=== PATIENT | female | born 1990 | race American Indian/Alaskan Native ===

== ENCOUNTER 2019-03-01 06:16 | Day surgery (SDC) | payer MEDICAID ==
[2019-02-27 11:37] LABS: Basophils # (Auto) 0.1 K/mm3 (0.0-0.1); Basophils % (Auto) 0.8 % (0.0-1.8); Eosinophils # (Auto) 0.1 K/mm3 (0.0-0.4); Eosinophils % (Auto) 1.3 % (0.0-4.3); Hematocrit 34.7 % (30.3-42.9); Hemoglobin 11.5 gm/dl (10.1-14.3); Lymphocytes # (Auto) 2.5 K/mm3 (1.2-5.4); Lymphocytes % (Auto) 36.7 % (13.4-35.0); Mean Corpuscular HGB Conc 33 % (30-34); Mean Corpuscular Volume 82 fl (79-97); Monocytes # (Auto) 0.5 K/mm3 (0.0-0.8); Platelet Count 303 K/mm3 (140-440); Red Blood Count 4.23 M/mm3 (3.65-5.03); Red Cell Distribution Width 14.6 % (13.2-15.2)
[2019-03-01] MEDS ORDERED: fentaNYL 100 MCG/2 ML INJ IV PRN (07:03)
[2019-03-01] MEDS ORDERED: ONDANSETRON 4 MG/2 ML INJ IV PRN (07:03)
--- NOTE | 2019-03-01 07:04 | Anesthesia Day of Surgery ---
Anesthesia Day of Surgery - Day of Surgery Patient Examined: Yes Patient H&P Reviewed: Yes Patient is NPO: Yes
[2019-03-01] MEDS ORDERED: KETOROLAC 30 MG/1 ML INJ ONE (07:06)
[2019-03-01] MEDS ORDERED: LIDOCAINE MPF (2%) 20 MG/1 ML VIAL 5 ML ONE (07:06)
[2019-03-01] MEDS ORDERED: PROPOFOL 200 MG/20 ML VIAL IV ONE (07:06)
[2019-03-01] MEDS ORDERED: dexAMETHasone 20 MG/5 ML VIAL ONE (07:06)
[2019-03-01] MEDS ORDERED: ROCURONIUM 50 MG/5 ML INJ IV ONE (07:06)
[2019-03-01] MEDS ORDERED: fentaNYL 250 MCG/5 ML INJ ONE (07:06)
--- NOTE | 2019-03-01 07:08 | Anesthesia Consultation ---
Anesthesia Consult and Med Hx Date of service: 03/01/19 - Airway Anesthetic Teeth Evaluation: Good ROM Head & Neck: Adequate Mental/Hyoid Distance: Adequate Mallampati Class: Class III Intubation Access Assessment: Possibly Difficult - Pre-Operative Health Status ASA Pre-Surgery Classification: ASA2 Proposed Anesthetic Plan: General - Central Nervous System Hx Psychiatric Problems: No - Hematic Hx Anemia: Yes Hx Sickle Cell Disease: Yes (Trait only) - Other Systems Hx Alcohol Use: Yes (Occas) Hx Cancer: No
[2019-03-01] MEDS ORDERED: SUGAMMADEX SODIUM 200 MG/2 ML VIAL IV ONE (07:11)
[2019-03-01] MEDS ORDERED: BUPIVACAINE/PF (0.5%) 5 MG/1 ML 30 ML VIAL INFILTRATI ONE ×2 (07:14→07:53)
--- NOTE | 2019-03-01 07:21 | Short Stay Summary ---
Short Stay Documentation Date of service: 03/01/19 Narrative H&P: 28y/o with undesired fertility. The patient is aware of other contraceptive options and has elected to undergo permanent sterilization. - History Principal diagnosis: unwanted fertility Past Medical History: hypertension Past Surgical History: Social history: - Allergies and Medications Current Medications: Allergies No Known Allergies Allergy (Unverified 02/23/19 15:27) Home Medications Medication Instructions Recorded Confirmed Last Taken Type No Known Home Medications [No 02/23/19 02/23/19 Unknown History Reported Home Medications] Active Medications Fentanyl (Sublimaze) 50 mcg IV Q5MIN PRN PRN Reason: Pain , Severe (7-10) Stop: 03/01/19 22:00 Lactated Ringer's (Lactated Ringers) 1,000 mls @ 125 mls/hr IV DIRECT LIZETH Midazolam HCl (Versed) 2 mg IV PREOP NR Stop: 03/01/19 23:59 Ondansetron HCl (Zofran) 4 mg IV ONCE PRN PRN Reason: Nausea And Vomiting Stop: 03/01/19 16:00 - Physical exam General appearance: no acute distress Integumentary: no rash HEENT: Atraumatic Lungs: Clear to auscultation Breasts: deferred Heart: Regular rate Gastrointestinal: normal Female Genitourinary: deferred Rectal Exam: deferred Extremities: no ischemia - Brief post op/procedure progress note Date of procedure: 03/01/19 Pre-op diagnosis: Undesired fertility Post-op diagnosis: same Procedure: laparoscopy bilateral salpingectomy Anesthesia: TAY Surgeon: BERNIE BYERS Estimated blood loss: minimal Pathology: list (bilateral fallopian tubes) Specimen disposition: to lab Condition: stable - Hospital course Hospital course: Patient was admitted at the date of surgery and underwent a bilateral salpingectomy. See operative note for details of surgery. Her postoperative course was uneventful. - Disposition Condition at discharge: Good Disposition: [id number] TO HOME OR SELFCARE Short Stay Discharge Plan Activity: other (pelvic rest for 1 week) Diet: regular Additional Instructions: Follow-up is not required Follow-up as needed Prescriptions: Ibuprofen [Motrin] 800 mg PO Q8HR PRN #60 tablet PRN Reason: Pain, Mild (1-3) HYDROcodone/APAP 5-325 [Patton 5/325] 1 each PO Q6HR PRN #20 tablet PRN Reason: Pain
[2019-03-01] MEDS ORDERED: SODIUM CHLORIDE 0.9% IRR 1,000 ML BOTTLE IR ONE (07:53)
[2019-03-01] MEDS ORDERED: LACTATED RINGERS 1,000 ML IV SCH (08:00)
[2019-03-01] MEDS ORDERED: MIDAZOLAM 2 MG/2 ML INJ IV NR (08:00)
--- NOTE | 2019-03-01 08:35 | Operative Report ---
Operative Report Operative Report: Date of surgery: 03/01/2019 Preoperative diagnosis: Unwanted fertility Postoperative diagnosis: Same as above Procedure: Laparoscopy; bilateral salpingectomy Surgeon: Aditi Farrell M.D. Anesthesia: General endotracheal anesthesia Estimated blood loss: Minimal Findings: Normal uterus and tubes bilaterally. Right ovary adherent to the right pelvic sidewall Pathology: Bilateral fallopian tubes Indication: 28-year-old with undesired fertility. Procedure: The patient was taken to the operating room and given general endotracheal anesthesia without complication. The patient is prepped and draped in a normal sterile fashion. A bivalve speculum was placed in the patient's vagina and a single-tooth tenaculum was placed on the anterior lip of the cervix .A uterine acorn manipulator was placed, and the bivalve speculum was then removed. Attention was then turned to the patient's abdomen where a 5 mm infraumbilical skin incision was then made. A Veress needle was placed and peritoneal entry was verified water-filled syringe. Insufflation of the peritoneal cavity was performed with CO2 gas. A 5 mm trocar was placed and the laparoscope was then inserted. The patient was then placed in Trendelenburg. A 7 mm suprapubic skin incision was then made. Under direct visualization a 7 mm trocar was then placed. An additional 5 mm left lateral trocar was placed under direct visualization. General survey of the patient's abdomen revealed normal uterus and tubes bilaterally. The right ovary was adherent to the right pelvic sidewall.. The fallopian tube was then followed out to the fimbriated end. The left fallopian tube was grasped. The LigaSure device was used to coagulate and transect the mesosalpinx for removal of the left fallopian tube. This was performed on the contralateral side as well. No active bleeding was noted. The 7 mm and 5 mm trocars were then removed. The pneumoperitoneum was then released. The 5 mm trocar laparoscope was then removed. The skin incisions were then closed with 4-0 Monocryl. The incisions were injected with quarter percent Marcaine. Dressings were applied to the incision. The vaginal instruments were then removed atraumatically. Then successfully extubated and taken to the recovery room. All sponge laps and needle counts were correct x2.
[2019-03-01] MEDS ORDERED: HYDROcodone/ACETAMINOPHEN 5-325 MG TAB ONE (09:35)
[2019-03-01] MEDS ORDERED: HYDROcodone/ACETAMINOPHEN 5-325 MG TAB PO PRN (09:54)
[2019-03-01 10:27] VITALS: BP 119/74
--- NOTE | 2019-03-02 08:52 | Post Anesthesia Evaluation ---
- Post Anesthesia Evaluation Patient Participated: Yes Airway Patent: Yes Stable Respiratory Function: Yes Nausea/Vomiting: No Temp > 96.8F: Yes Pain Manageable: Yes Adequeate Hydration: Yes Anesthesia Complications: No Block Receding Appropriately: Not Applicable Patient on Ventilator: No
== END 2019-03-01 06:17 | disposition home or self-care (01) ==
LOC: OR 06:16
PROVIDERS: ATTEND Obstetrics & Gynecology
DX: Z30.2 Encounter for sterilization (principal); Z98.891 History of uterine scar from previous surgery; Z72.89 Other problems related to lifestyle; Z98.890 Other specified postprocedural states; Z86.2 Personal history of diseases of the blood and blood-forming organs and certain disorders involving the immune mechanism
CPT/HCPCS: 36415; 58661; 84703; 85025; 88302; J1100; J1885; J2405; J2704; J3010; J7120